=== PATIENT | female | born 1940 ===

== ENCOUNTER 2023-09-25 19:50 | Observation (INO) | payer MEDICARE ==
[~2023-09-25] VITALS: Ht 160 cm; Wt 63.7 kg
[2023-09-25 22:55] VITALS: BP 164/71
[2023-09-26 00:30] VITALS: BP 142/59
[2023-09-26] MEDS ORDERED: ONDA4 PO (00:44)
[2023-09-26] MEDS ORDERED: NYAMYC15 G1 TOP (00:46)
[2023-09-26] MEDS ORDERED: FERSU300 PO (00:47)
[2023-09-26] MEDS ORDERED: ZYRTEC10 M2 PO (00:48)
[2023-09-26] MEDS ORDERED: LOSA50 PO (00:48)
[2023-09-26] MEDS ORDERED: SOLI5 PO (00:50)
[2023-09-26] MEDS ORDERED: Vitamin B Comple1 EA PO (00:51)
[2023-09-26] MEDS ORDERED: AMLO5 PO (00:52)
[2023-09-26] MEDS ORDERED: CARV3.125 PO (00:52)
[2023-09-26] MEDS ORDERED: Isosorbide Mono30 MG PO (00:53)
[2023-09-26] MEDS ORDERED: CLOP75 PO (00:53)
[2023-09-26] MEDS ORDERED: TRAZ100 PO (00:54)
[2023-09-26] MEDS ORDERED: L-LYSINE500 MG PO (00:55)
[2023-09-26] MEDS ORDERED: MELATONIN5 M1 PO (00:55)
[2023-09-26] MEDS ORDERED: MIRALAX17 GM PO (00:56)
[2023-09-26] MEDS ORDERED: ASPI325 PO (01:00)
[2023-09-26] MEDS ORDERED: PREVAGEN PO (01:00)
[2023-09-26 01:13] LABS: Thyroid Stimulating Hormone 2.84 uIU/mL (0.360-4.800)
[2023-09-26 01:14] LABS: Albumin, Blood 3.2 g/dL (3.4-5.0); Albumin/Globulin Ratio 0.9 (0.8-1.8); Bilirubin, Total 0.3 mg/dL (0.1-1.0); Bun/Creatinine Ratio 14.3 (12.0-20.0); Creatinine, Blood 1.19 mg/dL (0.40-1.00); Globulin, Blood 3.7 g/dL (2.2-4.0); Potassium, Blood 3.3 mmol/L (3.5-5.5); Total Protein, Blood 6.9 g/dL (6.4-8.2)
[2023-09-26] MEDS ORDERED: ACET325 PO (01:25)
[2023-09-26] MEDS ORDERED: META800 PO (01:26)
[2023-09-26] MEDS ORDERED: IBUP400 PO (01:27)
[2023-09-26] MEDS ORDERED: Norco 5-325 Ta1 EACH PO (01:28)
[2023-09-26 05:27] VITALS: BP 146/72
--- NOTE | 2023-09-26 06:43 | NUR ---
SHIFT SUMMARY PATIENT ARRIVED TO PCU 3 VIA EMS FROM [facility] AT 2230. 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 LUNG SOUNDS CLEAR, SPO2 >90% ON ROOM AIR, DENIES SHORTNESS OF BREATH. VITAL SIGNS STABLE, SINUS RHYTHM ON TELE, DENIES CHEST PAIN. NO ACUTE ISSUES NOTED OVERNIGHT. WILL CONTINUE TO MONITOR. CALL LIGHT WITHIN REACH.
--- NOTE | 2023-09-26 08:00 | NUR ---
Bedside report received from [facility]. The pt is alert, some orientation to person, place, and events but forgetful of some details. Per report, pt lives at an adult foster home in [place]. 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 She is sitting up eating breakfast at this time.
[2023-09-26 08:02] VITALS: BP 172/78
--- NOTE | 2023-09-26 08:03 | NUR ---
BLOOD PRESSURE NOTED HIGH. pt had c/o pain during taking blood pressure. Will recheck after she finished breakfast.
[2023-09-26 08:27] LABS: BASOPHILS ABSOLUTE AUTO 0.06 K/mm3 (0.00-0.23); BASOPHILS PERCENT AUTO 1 % (0-2); EOSINOPHILS ABSOLUTE AUTO 0.34 K/mm3 (0.00-0.68); EOSINOPHILS PERCENT AUTO 4 % (0-6); Hematocrit 40.6 % (33.0-51.0); IMMATURE GRAN ABSOLUTE AUTO 0.04 K/mm3 (0.00-0.10); IMMATURE GRAN PERCENT AUTO 0 % (0-1); LYMPHOCYTES PERCENT AUTO 27 % (21-46); MONOCYTES ABSOLUTE AUTO 0.71 K/mm3 (0.16-1.47); MONOCYTES PERCENT AUTO 8 % (4-13); Mean Corpuscular HGB 32.2 pg (26.0-34.0); Mean Corpuscular HGB Conc 34.5 g/dL (31.5-36.5); Mean Corpuscular Volume 93 fL (80-100); Mean Platelet Volume 12.3 fL (9.1-12.4); NEUTROPHILS ABSOLUTE AUTO 5.74 K/mm3 (1.96-9.15); NEUTROPHILS PERCENT AUTO 61 % (41-73); Platelet Count 214 K/mm3 (150-400); RDW Coefficient Variation 13.5 % (11.7-14.2); RDW Standard Deviation 45.9 fL (35.1-46.3); Red Blood Cell Count 4.35 M/mm3 (3.80-5.20); White Blood Cell Count 9.39 K/mm3 (4.00-11.30)
[2023-09-26 09:22] LABS: Magnesium, Blood 1.9 mg/dL (1.6-2.4)
[2023-09-26 09:23] LABS: Albumin, Blood 3.3 g/dL (3.4-5.0); Albumin/Globulin Ratio 0.8 (0.8-1.8); Bilirubin, Total 0.4 mg/dL (0.1-1.0); Bun/Creatinine Ratio 13.8 (12.0-20.0); Calcium, Blood 9.5 mg/dL (8.5-10.1); Creatinine, Blood 1.09 mg/dL (0.40-1.00); Total Protein, Blood 7.3 g/dL (6.4-8.2)
[2023-09-26 11:53] VITALS: BP 151/68
[2023-09-26 14:35] LABS: Stool Occult Blood Guaiac 1 Neg (Neg)
--- NOTE | 2023-09-26 14:43 | NUR ---
noted negative stool for occult blood.
--- NOTE | 2023-09-26 15:40 | NUR ---
Spoke with daughter Maria Fernanda on the phone. She was updated on the pt's discharge plan, and was agreeable to it. Said that she was very thankful that there was nothing wrong either with the patient's heart nor gall bladder.
[2023-09-26] MEDS ORDERED: ASPI81CH PO (15:42)
[2023-09-26] MEDS ORDERED: DOCU100 PO (15:43)
[2023-09-26] MEDS ORDERED: VISBIOME 112.51 EACH PO (15:43)
[2023-09-26] MEDS ORDERED: CEPH250A PO (15:44)
--- NOTE | 2023-09-26 16:00 | NUR ---
Pt was readied for discharge. Belongings, including home medications from the pharmacy in their paper sack were verified as in her belongings bag. Discharge instruction packet was also in a yellow folder and notified the wheelchair transport employee to make sure it was given to the Foster home staff upon arrival. PT was transported in wheelchair out of PCU, destination her foster home residence in [place].
== END 2023-09-26 16:15 | disposition home or self-care (01) ==
LOC: PCU 19:50
PROVIDERS: Internal Medicine; ADMIT Student in an Organized Health Care Education/Training Program
DX: R07.9 Chest pain, unspecified (principal); N39.0 Urinary tract infection, site not specified; E87.6 Hypokalemia; I12.9 Hypertensive chronic kidney disease with stage 1 through stage 4 chronic kidney disease, or unspecified chronic kidney disease; N18.30 Chronic kidney disease, stage 3 unspecified; I69.354 Hemiplegia and hemiparesis following cerebral infarction affecting left non-dominant side; I25.10 Atherosclerotic heart disease of native coronary artery without angina pectoris; I10 Essential (primary) hypertension; E78.5 Hyperlipidemia, unspecified; Z72.0 Tobacco use; Z88.5 Allergy status to narcotic agent
CPT/HCPCS: 36415; 80053; 82270; 83735; 84443; 84484; 85025; 96365; 96372; 97165; 97530; 97535; A9270; G0378; J0696; J1650